=== PATIENT | male | born 1990 | race Hispanic/Latino ===

== ENCOUNTER 2019-07-12 13:00 | Emergency (ER) | payer SELFPAY ==
[2019-07-12 14:56] LABS: Hemoglobin 15.9 gm/dl (11.8-15.2); Mean Corpuscular HGB Conc 34 % (32-34); Mean Corpuscular Volume 87 fl (84-94); Platelet Count 374 K/mm3 (140-440); Red Blood Count 5.39 M/mm3 (3.65-5.03); Red Cell Distribution Width 13.7 % (13.2-15.2)
[2019-07-12 15:47] LABS: BUN/Creatinine Ratio 21; Blood Urea Nitrogen 15 mg/dL (9-20); Calcium 10.1 mg/dL (8.4-10.2); Hemolysis Index 55
[2019-07-12 16:02] LABS: Basophils % (Manual) 0 % (0.0-1.8); Eosinophils % (Manual) 0 % (0.0-4.3); Total Cells Counted 100
[2019-07-12 16:03] LABS: Anisocytosis Few
[2019-07-12] MEDS ORDERED: SODIUM CHLORIDE 0.9% 1000 ML 2,000 ML IV ONE (17:09)
[2019-07-12] MEDS ORDERED: FAMOTIDINE 20 MG/2 ML INJ IV ONE (17:09)
[2019-07-12] MEDS ORDERED: KETOROLAC 30 MG/1 ML INJ IV ONE (17:09)
[2019-07-12] MEDS ORDERED: ONDANSETRON 4 MG/2 ML INJ IV ONE (17:09)
[2019-07-12] MEDS ORDERED: cloNIDine 0.1 MG TAB PO ONE (17:11)
--- NOTE | 2019-07-12 17:11 | Emergency Department Report ---
ED General Adult HPI - General Chief complaint: Medical Clearance Stated complaint: MEDICAL CLEARANCE Time Seen by Provider: 07/12/19 16:22 Source: patient, RN notes reviewed, old records reviewed Mode of arrival: Ambulatory Limitations: No Limitations - History of Present Illness Initial comments: This is a 28-year-old gentleman. This patient is not known to this provider previously. The patient is visiting from [place]. Patient reportedly has a history of narcotic and benzodiazepine dependence. He is currently in detox. As per review of enclose paperwork, he is prescribed Librium, as needed Ativan, Colace, Zofran, magnesium, Tylenol, trazodone, gabapentin. Apparently, he has refused multiple medications, including Fiberchoice, Kerry [place], Colace, Librium, gabapentin The patient is sent to the ER by the detox center for medical clearance. He complains of jitteriness, nausea, malaise, fatigue, muscle aches, anxiety, left- sided "lung pain." He reports that he drove down here from [place]. He denies a severe headache, neck pain, central chest pain. He denies exertional shortness of breath. He is not homicidal or suicidal. His anxiety is his most prominent symptom at this time. -: Gradual, hour(s) Location: chest (left), left, right, upper extremity, lower extremity Quality: aching Consistency: intermittent Improves with: rest Worsens with: movement - Related Data Previous Rx's Medication Instructions Recorded Last Taken Type Ondansetron [Zofran Odt] 4 mg PO Q8HR PRN #20 tab.rapdis 07/12/19 Unknown Rx Promethazine [Phenergan SUPPOS] 50 mg WI Q6H PRN #15 supp.rect 07/12/19 Unknown Rx chlordiazePOXIDE [Librium] 25 mg PO Q6H PRN #10 capsule 07/12/19 Unknown Rx cloNIDine [Catapres] 0.1 mg PO BID PRN #15 tablet 07/12/19 Unknown Rx Allergies Allergy/AdvReac Type Severity Reaction Status Date / Time No Known Allergies Allergy Verified 07/12/19 14:14 ED Review of Systems ROS: Stated complaint: MEDICAL CLEARANCE Other details as noted in HPI Constitutional: malaise, weakness Eyes: denies: eye discharge ENT: denies: congestion Respiratory: denies: cough Cardiovascular: other (left sided lung pain). denies: syncope Gastrointestinal: nausea, vomiting Genitourinary: denies: dysuria Musculoskeletal: arthralgia, myalgia Skin: denies: lesions Neurological: weakness Psychiatric: anxiety. denies: homicidal thoughts, suicidal thoughts ED Past Medical Hx - Past Medical History Previous Medical History?: No - Surgical History Past Surgical History?: No - Social History Smoking Status: Current Every Day Smoker Substance Use Type: None, Tranquilizers - Medications Home Medications: Home Medications Medication Instructions Recorded Confirmed Last Taken Type Ondansetron [Zofran Odt] 4 mg PO Q8HR PRN #20 tab.rapdis 07/12/19 Unknown Rx Promethazine [Phenergan SUPPOS] 50 mg WI Q6H PRN #15 supp.rect 07/12/19 Unknown Rx chlordiazePOXIDE [Librium] 25 mg PO Q6H PRN #10 capsule 07/12/19 Unknown Rx cloNIDine [Catapres] 0.1 mg PO BID PRN #15 tablet 07/12/19 Unknown Rx ED Physical Exam - General Limitations: No Limitations General appearance: alert, anxious - Head Head exam: Present: atraumatic, normocephalic - Eye Eye exam: Present: normal appearance, EOMI. Absent: nystagmus - ENT ENT exam: Present: normal exam, normal orophraynx, mucous membranes moist, normal external ear exam - Neck Neck exam: Present: normal inspection, full ROM. Absent: tenderness, meningismus - Respiratory Respiratory exam: Present: normal lung sounds bilaterally. Absent: respiratory distress - Cardiovascular Cardiovascular Exam: Present: normal rhythm, tachycardia, normal heart sounds. Absent: systolic murmur, diastolic murmur, rubs, gallop - GI/Abdominal GI/Abdominal exam: Present: soft. Absent: distended, tenderness, guarding, rebound, rigid, pulsatile mass - Rectal Rectal exam: Present: deferred - Extremities Exam Extremities exam: Present: normal inspection, full ROM, other (2+ pulses noted in the bilateral upper, lower extremities. There is no long bone tenderness. Musculoskeletal compartments are soft. The pelvis is stable.). Absent: pedal edema, joint swelling, calf tenderness - Back Exam Back exam: Present: normal inspection, full ROM. Absent: tenderness, CVA tenderness (R), CVA tenderness (L), paraspinal tenderness, vertebral tenderness - Neurological Exam Neurological exam: Present: alert, other (there is no facial droop. The tongue is midline. Extraocular movements are intact bilaterally. Patient speaking in full complete sentences. Shoulder shrug is intact bilaterally. Hearing is grossly intact bilaterally. Visual acuity intact to finger counting and color perception at a close distance. 5/5 strength 4 extremities. Sensation intact to light touch in 4 extremities.). Absent: motor sensory deficit - Psychiatric Psychiatric exam: Present: anxious. Absent: homicidal ideation, suicidal ideation - Skin Skin exam: Present: warm, dry, intact, normal color. Absent: rash ED Course Vital Signs 07/12/19 07/12/19 07/12/19 14:09 15:42 16:00 Temperature 99 F Pulse Rate 135 H 65 85 Respiratory 16 32 H 32 H Rate Blood Pressure 128/77 128/77 Blood Pressure 169/97 [Left] O2 Sat by Pulse 97 98 98 Oximetry 07/12/19 07/12/19 07/12/19 16:30 17:00 17:30 Temperature Pulse Rate 65 61 88 Respiratory 28 H 24 25 H Rate Blood Pressure 136/79 135/74 143/83 Blood Pressure [Left] O2 Sat by Pulse 98 98 98 Oximetry 07/12/19 07/12/19 17:47 19:28 Temperature 98.3 F Pulse Rate 56 L 53 L Respiratory 21 20 Rate Blood Pressure Blood Pressure 136/77 112/57 [Left] O2 Sat by Pulse 97 99 Oximetry - Reevaluation(s) Reevaluation #1: 07/12/19 17:49 Steffen diagnosis, including but not limited to: Narcotic withdrawal, b enzodiazepine withdrawal, dehydration, pneumonia, pulmonary embolism, anxiety Assessment and plan: 28-year-old gentleman, status post recent [address] trip to come to a detox center here from [place], with probable withdrawal symptoms. Currently, he is afebrile, with a temperature of 98.3, 21 respirations per minute, 97% on room air, heart rate 56 bpm, blood pressure 136/77 He is anxious, but pleasant, calm and cooperative. Laboratory studies suggest mild dehydration, consistent with history of nausea and vomiting, leukocytosis, which is most likely a stress reaction. However, he does endorse left-sided lung pain. Given initial low-grade temperature, tachycardia, incomplete right bundle-branch block on EKG, we will send a d-dimer to risk stratify the patient for potential pulmonary embolism. However, he is low risk by well's criteria, and is not currently tachycardic, or tachypneic. We will also treat his symptoms. Reevaluation #2: 07/12/19 21:01 D-dimer is negative. Vital signs normalized. Repeat blood tests show improvement and anion gap, and decreasing white blood cell count. No active vomiting at this time. X-ray of the chest is negative. Vital signs are normalized. Patient does not meet criteria for hospitalization at this time. ED Medical Decision Making - Lab Data Result diagrams: 07/12/19 19:42 07/12/19 19:42 Vital Signs 07/12/19 07/12/19 07/12/19 14:09 15:42 16:00 Temperature 99 F Pulse Rate 135 H 65 85 Respiratory 16 32 H 32 H Rate Blood Pressure 128/77 128/77 Blood Pressure 169/97 [Left] O2 Sat by Pulse 97 98 98 Oximetry 07/12/19 07/12/19 07/12/19 16:30 17:00 17:30 Temperature Pulse Rate 65 61 88 Respiratory 28 H 24 25 H Rate Blood Pressure 136/79 135/74 143/83 Blood Pressure [Left] O2 Sat by Pulse 98 98 98 Oximetry 07/12/19 17:47 Temperature 98.3 F Pulse Rate 56 L Respiratory 21 Rate Blood Pressure Blood Pressure 136/77 [Left] O2 Sat by Pulse 97 Oximetry Lab Results 07/12/19 07/12/19 07/12/19 Range/Units 14:28 14:28 14:28 WBC (4.5-11.0) K/mm3 RBC (3.65-5.03) M/mm3 Hgb (11.8-15.2) gm/dl Hct (35.5-45.6) % MCV (84-94) fl MCH (28-32) pg MCHC (32-34) % RDW (13.2-15.2) % Plt Count (140-440) K/mm3 Add Manual Diff Total Counted Seg Neuts % (Manual) (40.0-70.0) % Band Neutrophils % % Lymphocytes % (Manual) (13.4-35.0) % Reactive Lymphs % (Man) % Monocytes % (Manual) (0.0-7.3) % Eosinophils % (Manual) (0.0-4.3) % Basophils % (Manual) (0.0-1.8) % Metamyelocytes % % Myelocytes % % Promyelocytes % % Blast Cells % % Nucleated RBC % Seg Neutrophils # Man (1.8-7.7) K/mm3 Band Neutrophils # K/mm3 Lymphocytes # (Manual) (1.2-5.4) K/mm3 Abs React Lymphs (Man) K/mm3 Monocytes # (Manual) (0.0-0.8) K/mm3 Eosinophils # (Manual) (0.0-0.4) K/mm3 Basophils # (Manual) (0.0-0.1) K/mm3 Metamyelocytes # K/mm3 Myelocytes # K/mm3 Promyelocytes # K/mm3 Blast Cells # K/mm3 WBC Morphology Hypersegmented Neuts Hyposegmented Neuts Hypogranular Neuts Smudge Cells Toxic Granulation Toxic Vacuolation Dohle Bodies Pelger-Huet Anomaly Eladio Rods Platelet Estimate Clumped Platelets Plt Clumps, EDTA Large Platelets Giant Platelets Platelet Satelliting Plt Morphology Comment RBC Morphology Dimorphic RBCs Polychromasia Hypochromasia Poikilocytosis Anisocytosis Microcytosis Macrocytosis Spherocytes Pappenheimer Bodies Sickle Cells Target Cells Tear Drop Cells Ovalocytes Helmet Cells [place] Bodies [place] Rings [place] Cells Bite Cells Crenated Cell Elliptocytes Acanthocytes (Spur) Rouleaux Hemoglobin C Crystals Schistocytes Malaria parasites Reagan Bodies Hem Pathologist Commnt PT (12.2-14.9) Sec. INR (0.87-1.13) Sodium 139 (137-145) mmol/L Potassium 4.1 (3.6-5.0) mmol/L Chloride 97.7 L (98-107) mmol/L Carbon Dioxide 19 L (22-30) mmol/L Anion Gap 26 mmol/L BUN 15 (9-20) mg/dL Creatinine 0.7 L (0.8-1.5) mg/dL Estimated GFR > 60 ml/min BUN/Creatinine Ratio 21 % Glucose 103 H (75-100) mg/dL Calcium 10.1 (8.4-10.2) mg/dL Magnesium (1.7-2.3) mg/dL Total Creatine Kinase (55-170) units/L Salicylates < 0.3 L (2.8-20.0) mg/dL Acetaminophen < 5.0 L (10.0-30.0) ug/mL Plasma/Serum Alcohol (0-0.07) % 07/12/19 07/12/19 07/12/19 Range/Units 14:28 14:28 17:16 WBC 21.1 H (4.5-11.0) K/mm3 RBC 5.39 H (3.65-5.03) M/mm3 Hgb 15.9 H (11.8-15.2) gm/dl Hct 47.0 H (35.5-45.6) % MCV 87 (84-94) fl MCH 30 (28-32) pg MCHC 34 (32-34) % RDW 13.7 (13.2-15.2) % Plt Count 374 (140-440) K/mm3 Add Manual Diff Complete Total Counted 100 Seg Neuts % (Manual) 90.0 H (40.0-70.0) % Band Neutrophils % 0 % Lymphocytes % (Manual) 5.0 L (13.4-35.0) % Reactive Lymphs % (Man) 0 % Monocytes % (Manual) 5.0 (0.0-7.3) % Eosinophils % (Manual) 0 (0.0-4.3) % Basophils % (Manual) 0 (0.0-1.8) % Metamyelocytes % 0 % Myelocytes % 0 % Promyelocytes % 0 % Blast Cells % 0 % Nucleated RBC % Not Reportable Seg Neutrophils # Man 19.0 H (1.8-7.7) K/mm3 Band Neutrophils # 0.0 K/mm3 Lymphocytes # (Manual) 1.1 L (1.2-5.4) K/mm3 Abs React Lymphs (Man) 0.0 K/mm3 Monocytes # (Manual) 1.1 H (0.0-0.8) K/mm3 Eosinophils # (Manual) 0.0 (0.0-0.4) K/mm3 Basophils # (Manual) 0.0 (0.0-0.1) K/mm3 Metamyelocytes # 0.0 K/mm3 Myelocytes # 0.0 K/mm3 Promyelocytes # 0.0 K/mm3 Blast Cells # 0.0 K/mm3 WBC Morphology Not Reportable Hypersegmented Neuts Not Reportable Hyposegmented Neuts Not Reportable Hypogranular Neuts Not Reportable Smudge Cells Not Reportable Toxic Granulation Not Reportable Toxic Vacuolation Not Reportable Dohle Bodies Not Reportable Pelger-Huet Anomaly Not Reportable Eladio Rods Not Reportable Platelet Estimate Appears normal Clumped Platelets Not Reportable Plt Clumps, EDTA Not Reportable Large Platelets Not Reportable Giant Platelets Not Reportable Platelet Satelliting Not Reportable Plt Morphology Comment Not Reportable RBC Morphology Not Reportable Dimorphic RBCs Not Reportable Polychromasia Not Reportable Hypochromasia Not Reportable Poikilocytosis Not Reportable Anisocytosis Few Microcytosis Not Reportable Macrocytosis Not Reportable Spherocytes Not Reportable Pappenheimer Bodies Not Reportable Sickle Cells Not Reportable Target Cells Not Reportable Tear Drop Cells Not Reportable Ovalocytes Not Reportable Helmet Cells Not Reportable [place] Bodies Not Reportable [place] Rings Not Reportable Rakesh Cells Not Reportable Bite Cells Not Reportable Crenated Cell Not Reportable Elliptocytes Not Reportable Acanthocytes (Spur) Not Reportable Rouleaux Not Reportable Hemoglobin C Crystals Not Reportable Schistocytes Not Reportable Malaria parasites Not Reportable Reagan Bodies Not Reportable Hem Pathologist Commnt No PT 15.2 H (12.2-14.9) Sec. INR 1.23 H (0.87-1.13) Sodium (137-145) mmol/L Potassium (3.6-5.0) mmol/L Chloride (98-107) mmol/L Carbon Dioxide (22-30) mmol/L Anion Gap mmol/L BUN (9-20) mg/dL Creatinine (0.8-1.5) mg/dL Estimated GFR ml/min BUN/Creatinine Ratio % Glucose (75-100) mg/dL Calcium (8.4-10.2) mg/dL Magnesium (1.7-2.3) mg/dL Total Creatine Kinase (55-170) units/L Salicylates (2.8-20.0) mg/dL Acetaminophen (10.0-30.0) ug/mL Plasma/Serum Alcohol < 0.01 (0-0.07) % 07/12/19 Range/Units 17:16 WBC (4.5-11.0) K/mm3 RBC (3.65-5.03) M/mm3 Hgb (11.8-15.2) gm/dl Hct (35.5-45.6) % MCV (84-94) fl MCH (28-32) pg MCHC (32-34) % RDW (13.2-15.2) % Plt Count (140-440) K/mm3 Add Manual Diff Total Counted Seg Neuts % (Manual) (40.0-70.0) % Band Neutrophils % % Lymphocytes % (Manual) (13.4-35.0) % Reactive Lymphs % (Man) % Monocytes % (Manual) (0.0-7.3) % Eosinophils % (Manual) (0.0-4.3) % Basophils % (Manual) (0.0-1.8) % Metamyelocytes % % Myelocytes % % Promyelocytes % % Blast Cells % % Nucleated RBC % Seg Neutrophils # Man (1.8-7.7) K/mm3 Band Neutrophils # K/mm3 Lymphocytes # (Manual) (1.2-5.4) K/mm3 Abs React Lymphs (Man) K/mm3 Monocytes # (Manual) (0.0-0.8) K/mm3 Eosinophils # (Manual) (0.0-0.4) K/mm3 Basophils # (Manual) (0.0-0.1) K/mm3 Metamyelocytes # K/mm3 Myelocytes # K/mm3 Promyelocytes # K/mm3 Blast Cells # K/mm3 WBC Morphology Hypersegmented Neuts Hyposegmented Neuts Hypogranular Neuts Smudge Cells Toxic Granulation Toxic Vacuolation Dohle Bodies Pelger-Huet Anomaly Eladio Rods Platelet Estimate Clumped Platelets Plt Clumps, EDTA Large Platelets Giant Platelets Platelet Satelliting Plt Morphology Comment RBC Morphology Dimorphic RBCs Polychromasia Hypochromasia Poikilocytosis Anisocytosis Microcytosis Macrocytosis Spherocytes Pappenheimer Bodies Sickle Cells Target Cells Tear Drop Cells Ovalocytes Helmet Cells [place] Bodies [place] Rings [place] Cells Bite Cells Crenated Cell Elliptocytes Acanthocytes (Spur) Rouleaux Hemoglobin C Crystals Schistocytes Malaria parasites Reagan Bodies Hem Pathologist Commnt PT (12.2-14.9) Sec. INR (0.87-1.13) Sodium (137-145) mmol/L Potassium (3.6-5.0) mmol/L Chloride (98-107) mmol/L Carbon Dioxide (22-30) mmol/L Anion Gap mmol/L BUN (9-20) mg/dL Creatinine (0.8-1.5) mg/dL Estimated GFR ml/min BUN/Creatinine Ratio % Glucose (75-100) mg/dL Calcium (8.4-10.2) mg/dL Magnesium 2.30 (1.7-2.3) mg/dL Total Creatine Kinase 56 (55-170) units/L Salicylates (2.8-20.0) mg/dL Acetaminophen (10.0-30.0) ug/mL Plasma/Serum Alcohol (0-0.07) % - EKG Data -: EKG Interpreted by Me EKG shows normal: sinus rhythm Rate: bradycardia - EKG Data When compared to previous EKG there are: previous EKG unavailable 07/12/19 17:53 There is no prior EKG available for comparison. This is a bradycardic rate, 60 bpm, incomplete right bundle branch block, high left ventricular voltage, EKG is abnormal, there is no prior for comparison, QTC is within normal limits, the EKG is not consistent with ST elevation myocardial infarction - Radiology Data Radiology results: pending, report reviewed, image reviewed X-ray the chest is negative for acute disease Critical care attestation.: If time is entered above; I have spent that time in minutes in the direct care of this critically ill patient, excluding procedure time. ED Disposition Clinical Impression: Narcotic dependence, Benzodiazepine dependence, History of nausea and vomiting Disposition: DC-01 TO HOME OR SELFCARE Is pt being admited?: No Does the pt Need Aspirin: No Condition: Stable Additional Instructions: Advance diet as tolerated. Take the medications as needed/directed. Follow up with the primary care doctor within the next 3-5 days. Return to the emergency room right away with new, worsened, different symptoms not present on the initial emergency room evaluation. Recommend following up with an non destructive testing specialist or psychiatrist within the next 7-10 days. Take the Zofran medication as needed for nausea, vomiting, Phenergan suppository as needed for intractable nausea, vomiting, clonidine medication as needed for sensation of narcotic withdrawal, with your medication is needed for sensation of benzodiazepine withdrawal. Referrals: [facility] [Provider Group] - 3-5 Days [facility] [Provider Group] - 3-5 Days [facility] [Outside] - 3-5 Days
[2019-07-12] MEDS ORDERED: diazePAM 10 MG/2 ML SYRINGE IV ONE (17:30)
[2019-07-12 17:49] LABS: INR 1.23 (0.87-1.13)
[2019-07-12] MEDS ORDERED: SODIUM CHLORIDE 0.9% 1000 ML 1,000 ML IV ONE (17:51)
--- NOTE | 2019-07-12 18:22 | XRay Report ---
CHEST 1 VIEW INDICATION: left sided cp. COMPARISON: None. FINDINGS: Support devices: None. Heart: Normal. Lungs/Pleura: No acute pulmonary or pleural findings. IMPRESSION: 1. No acute findings. Signer Name: Anthony Echeverria MD Signed: 07/12/2019 6:17 PM Workstation Name: [id number]
[2019-07-12 19:45] LABS: Bilirubin,Urine NEG (Negative); Blood,Urine NEG (Negative); Color,Urine Yellow (Yellow); Mucus,Urine FEW /HPF; Urobilinogen,Urine < 2.0 mg/dL (<2.0)
[2019-07-12 19:58] LABS: Amphetamine Screen,Urine PRESUMPTIVE NEGATIVE; Cannabinoid Screen,Urine PRESUMPTIVE NEGATIVE; Cocaine Screen,Urine PRESUMPTIVE NEGATIVE; Methadone Screen,Urine PRESUMPTIVE NEGATIVE; Opiate Screen,Urine PRESUMPTIVE NEGATIVE
[2019-07-12 20:23] LABS: Benzodiazepines Screen,Urine PRESUMPTIVE POSITIVE
[2019-07-12 20:29] LABS: Hematocrit 38.6 % (35.5-45.6); Hemoglobin 12.7 gm/dl (11.8-15.2); Mean Corpuscular HGB Conc 33 % (32-34); Mean Corpuscular Volume 87 fl (84-94); Platelet Count 281 K/mm3 (140-440); Red Blood Count 4.42 M/mm3 (3.65-5.03); Red Cell Distribution Width 13.3 % (13.2-15.2)
[2019-07-12 20:53] LABS: BUN/Creatinine Ratio 22; Blood Urea Nitrogen 13 mg/dL (9-20); Calcium 7.7 mg/dL (8.4-10.2); Hemolysis Index 9
[2019-07-12] MEDS ORDERED: NICOTINE 14 MG/24 HR PATCH TD ONE (21:00)
[2019-07-12 21:39] VITALS: BP 118/63
== END 2019-07-12 21:41 | disposition home or self-care (01) ==
LOC: ED 13:00
DX: F11.20 Opioid dependence, uncomplicated (principal); F13.20 Sedative, hypnotic or anxiolytic dependence, uncomplicated; F17.200 Nicotine dependence, unspecified, uncomplicated; Z87.898 Personal history of other specified conditions
CPT/HCPCS: 36415; 71045; 80048; 80307; 81001; 82550; 83735; 85007; 85025; 85027; 85379; 85610; 93005; 93010; 96361; 96374; 96375; 99285; J1885; J2405; J3360; J7030; 80320; G0480